=== PATIENT | female | born 1975 | race Caucasian/White ===

== ENCOUNTER → 2017-07-25 | Outpatient (CLI) | payer OTHER ==
--- NOTE | 2017-07-25 11:31 | DIAGNOSTIC IMAGING REPORT ---
CHEST 2 VIEWS ROUTINE CLINICAL HISTORY: J18.9 R06.2 WHEEZING, COUGHING. COMPARISON STUDY: No previous studies for comparison. FINDINGS: The cardiac and mediastinal contours are normal. There is no evidence of focal pulmonary consolidation. There is no evidence of failure. No pleural effusions are visualized.[ There is equivocal minimal lower lobe bronchial wall thickening. IMPRESSION: Equivocal minimal lower lobe bronchial wall thickening. Otherwise negative chest. No evidence of focal pulmonary consolidation. Electronically signed by: Hayden Ahuja M.D. 07/25/2017 11:30 AM Dictated Date/Time: 07/25/2017 11:29 AM
== END | disposition home or self-care (01) ==
LOC: C.RAD1850 11:17
PROVIDERS: ATTEND Physician Assistant
DX: J18.9 Pneumonia, unspecified organism (principal); R06.2 Wheezing

== ENCOUNTER → 2017-10-26 | Outpatient (CLI) | payer OTHER ==
--- NOTE | 2017-10-26 10:50 | DIAGNOSTIC IMAGING REPORT ---
CERVICAL SPINE 4 OR 5 VIEWS CLINICAL HISTORY: NECK PAIN COMPARISON STUDY: No previous studies for comparison. FINDINGS: There is slight straightening of normal cervical lordosis. No fractures or subluxations are visualized. There are no erosive or destructive changes. The bony neural foramina appear patent bilaterally IMPRESSION: Slight straightening of the normal cervical lordosis. Otherwise normal conventional radiographic evaluation of the cervical spine Electronically signed by: Hayden Ahuja M.D. 10/26/2017 10:48 AM Dictated Date/Time: 10/26/2017 10:48 AM
== END | disposition home or self-care (01) ==
LOC: C.RDSM 10:28
PROVIDERS: ATTEND Internal Medicine
DX: M54.2 Cervicalgia (principal)

== ENCOUNTER → 2018-01-27 | Outpatient (CLI) | payer OTHER ==
--- NOTE | 2018-01-30 12:41 | MAMMOGRAPHY REPORT ---
BILATERAL DIGITAL SCREENING MAMMOGRAM TOMOSYNTHESIS WITH CAD: 01/27/2018 CLINICAL HISTORY: Routine screening. Patient has no complaints. TECHNIQUE: Breast tomosynthesis in addition to standard 2D mammography was performed. Current study was also evaluated with a Computer Aided Detection (CAD) system. COMPARISON: No prior exams were available for comparison. BREAST COMPOSITION: The tissue of both breasts is heterogeneously dense, which may obscure small mas ses. FINDINGS: There are calcifications seen throughout the left upper outer quadrant, for which spot magn ification views are recommended for further evaluation. The remainder of both breasts demonstrate no suspicious masses, calcifications, or areas of architectural distortion. IMPRESSION: ACR BI-RADS CATEGORY 0: INCOMPLETE EVALUATION: NEED ADDITIONAL IMAGING EVALUATION Left upper outer quadrant calcifications, for which additional imaging evaluation is recommended. Th e patient will be called to schedule an appointment. Approximately 10% of breast cancers are not detected with mammography. A negative mammographic report should not delay biopsy if a clinically suggestive mass is present. Le Peres M.D. ah/:01/27/2018 16:27:58 Marking Stitcher: Estela BOO(Binta)(M), [facility] letter sent: Addl Imaging 0 BI-RADS Code: ACR BI-RADS Category 0: Incomplete Evaluation: Need Additional Imaging Evaluation
== END | disposition home or self-care (01) ==
LOC: C.MAMM 08:36
PROVIDERS: ATTEND Physician Assistant
DX: Z12.31 Encounter for screening mammogram for malignant neoplasm of breast (principal); R92.0 Mammographic microcalcification found on diagnostic imaging of breast

== ENCOUNTER → 2018-02-08 | Outpatient (CLI) | payer OTHER ==
--- NOTE | 2018-02-08 15:23 | MAMMOGRAPHY REPORT ---
UNILATERAL LEFT DIGITAL DIAGNOSTIC MAMMOGRAM: 02/08/2018 CLINICAL HISTORY: Callback from screening mammogram for left breast calcifications. TECHNIQUE: Spot magnification left CC and ML views were obtained. COMPARISON: Comparison is made to exam dated: 01/27/2018 mammogram - [facility]. BREAST COMPOSITION: The tissue of the left breast is heterogeneously dense, which may obscure small masses. FINDINGS: Spot magnification views of the left breast demonstrate regional punctate and round benign- appearing calcifications throughout the left upper outer quadrant. The calcifications are probably b enign given the morphology and distribution. No suspicious masses or focal clusters of calcification s are seen. IMPRESSION: ACR-BI-RADS CATEGORY 3: PROBABLY BENIGN Regional punctate benign-appearing calcifications throughout the left upper outer quadrant are probab ly benign. Recommend follow-up diagnostic tomosynthesis mammograms in 6 months to confirm stability, given no priors to document stability. The patient has been verbally notified of the results. Approximately 10% of breast cancers are not detected with mammography. A negative mammographic report should not delay biopsy if a clinically suggestive mass is present. Le Peres M.D. ah/:02/08/2018 14:07:41 Pediatrician/Medical Doctor: Jaimie GREENBERG)(Jonathan), [facility] letter sent: Follow Up Recommended 3 BI-RADS Code: ACR-BI-RADS Category 3: Probably Benign
== END | disposition home or self-care (01) ==
LOC: C.MAMM 13:33
PROVIDERS: ATTEND Physician Assistant
DX: R92.0 Mammographic microcalcification found on diagnostic imaging of breast (principal)